=== PATIENT | male | born 1970 | race Caucasian/White ===

== ENCOUNTER 2022-12-21 23:44 | Emergency (ER) | payer MEDICAID, MEDICARE ==
[~2022-12-21] VITALS: Ht 190.5 cm; Wt 99.8 kg
--- NOTE | 2022-12-22 01:54 | NUR ---
KIP FROM HOME FOR PAIN MANAGEMENT, FRACTURED L1-S5 FROM FEW YRS AGO
--- NOTE | 2022-12-22 02:27 | NUR ---
DR RAMIREZ AT BEDSIDE
[2022-12-22] MEDS ORDERED: KETOROLAC TROMETHAMINE INJ 30 MG/ML VIAL ONE (02:58)
[2022-12-22] MEDS ORDERED: MORPHINE SULFATE INJ 2 MG/ML DISP.SYRIN ONE (02:58)
[2022-12-22] MEDS ORDERED: MORPHINE SULFATE INJ 4 MG/ML DISP.SYRIN ONE (02:58)
[2022-12-22] MEDS ORDERED: CYCLOBENZAPRINE 10 MG TABLET ONE (02:59)
[2022-12-22] MEDS ORDERED: ACETAMINOPHEN ES 500 MG TABLET ONE (02:59)
[2022-12-22] MEDS ORDERED: ACETAMINOPHEN ES 500 MG TABLET PO ONE (03:00)
[2022-12-22] MEDS ORDERED: CYCLOBENZAPRINE 10 MG TABLET PO ONE (03:00)
[2022-12-22] MEDS ORDERED: KETOROLAC TROMETHAMINE INJ 30 MG/ML VIAL IV ONE (03:00)
[2022-12-22] MEDS ORDERED: MORPHINE SULFATE INJ 2 MG/ML DISP.SYRIN IV ONE (03:00)
[2022-12-22] MEDS ORDERED: HYDROMORPHONE 1 MG/1 ML DISP.SYRIN ONE ×3 (03:28→05:47)
[2022-12-22] MEDS ORDERED: HYDROMORPHONE 1 MG/1 ML DISP.SYRIN IV ONE ×3 (03:30→06:00)
[2022-12-22 05:58] VITALS: BP 189/80; TEMP 98.3; O2SAT 96
--- NOTE | 2022-12-22 06:00 | NUR ---
IV removed. Catheter intact and site benign. Pressure and 4x4 applied to site. No bleeding noted.
--- NOTE | 2022-12-22 06:00 | NUR ---
Patient discharged to home in stable condition. Written and verbal after care instructions given. Patient verbalizes understanding of instruction.
== END 2022-12-22 06:00 | disposition home or self-care (01) ==
LOC: ER 23:48
DX: G89.29 Other chronic pain (principal); M54.50 Low back pain, unspecified; Z60.2 Problems related to living alone
CPT/HCPCS: 99284; 96374; 96376; J1170 ×3; J1885; J2270

== ENCOUNTER 2023-01-26 04:18 | Emergency (ER) | payer MEDICAID ==
[~2023-01-26] VITALS: Ht 180.3 cm; Wt 77.1 kg
[2023-01-26] MEDS: KETOROLAC TROMETHAMINE INJ 60 MG/2 ML VIAL IM ONE (04:35)
[2023-01-26] MEDS ORDERED: MORPHINE SULFATE INJ 4 MG/ML DISP.SYRIN ONE (04:36)
[2023-01-26] MEDS ORDERED: MORPHINE SULFATE INJ 2 MG/ML DISP.SYRIN ONE (04:36)
[2023-01-26 04:37] VITALS: BP 137/70; TEMP 98.7; O2SAT 100
[2023-01-26] MEDS: MORPHINE SULFATE INJ 2 MG/ML DISP.SYRIN IM ONE (04:39)
== END 2023-01-26 04:40 | disposition home or self-care (01) ==
LOC: ER 04:23
DX: M54.50 Low back pain, unspecified (principal); G89.29 Other chronic pain; Z76.5 Malingerer [conscious simulation]; Z60.2 Problems related to living alone
CPT/HCPCS: 99283; 96372; J2270 ×2